=== PATIENT | female | born 1940 | race Two or more races ===

== ENCOUNTER 2023-08-22 11:58 | Emergency (ER) | payer OTHER ==
[~2023-08-22] VITALS: Ht 154.9 cm; Wt 83.9 kg
[2023-08-22 13:25] LABS: HEMATOCRIT 41.9 % (36.0-45.00); HEMOGLOBIN 14.5 g/dL (12.0-15.00); MEAN CELL VOLUME 86.5 fL (80.00-100.00); MEAN CORPUSCULAR HEMOGLOBIN 29.9 pg (27.00-32.0); MEAN CORPUSCULAR HGB CONC 34.6 g/dl (32.0-36.0); PLATELET COUNT 171 K/uL (150-450); RED BLOOD COUNT 4.84 M/uL (4.00-6.00); RED CELL DISTRIBUTION WIDTH 13.9 % (11.5-14.5)
[2023-08-22 13:48] LABS: CALCIUM 9.1 mg/dL (8.5-10.1); CREATININE SERUM 0.8 mg/dL (0.55-1.02); GFR 68.5; POTASSIUM 4.22 mEq/L (3.5-5.1)
[2023-08-22 15:10] LABS: URINE APPEARANCE Clear; URINE BILIRRUBIN Negative (NEGATIVE); URINE BLOOD Negative; URINE COLOR Dark Yellow; URINE GLUCOSE Negative (NEGATIVE); URINE LEUKOCYTE Trace; URINE NITRATE Negative; URINE PROTEIN Negative (NEGATIVE)
[2023-08-22 15:13] LABS: URINE BACTERIA 30.2 uL (0.0-1933); URINE EPITHELIAL CELLS 6.7 uL (0.0-38.8); URINE RBC 14.6 uL (0.0-20.8); URINE WBC 3.5 uL (0.0-23.2)
[2023-08-22] MEDS ORDERED: METRONIDAZOLE500 MG PO (17:36)
[2023-08-22] MEDS ORDERED: LEVSIN/SL0.125 MG SL (17:36)
[2023-08-22] MEDS ORDERED: OMEPRAZOLE40 MG PO (17:36)
[2023-08-22] MEDS ORDERED: CIPRO500 MG PO (17:36)
[2023-08-22] MEDS ORDERED: ONDANSETRON ODT8 MG PO (17:37)
== END 2023-08-22 18:34 | disposition home or self-care (01) ==
LOC: ER 11:59
PROVIDERS: Emergency Medicine
DX: R10.9 Unspecified abdominal pain (principal); Z88.2 Allergy status to sulfonamides
CPT/HCPCS: 36415; 96365; 96366; 99284; J3490; J7030